=== PATIENT | male | born 1955 | race Caucasian/White ===

== ENCOUNTER → 2024-11-27 | Outpatient (CLI) | payer MEDICAID, MEDICARE ==
[~2024-11-27] MED LIST: ALPR0.25; ATOR1TAB21; ERGO500029; HYDR-3490; LISI20TA33; ONDA-84 PO; PROC10TA5 PO
== END ==
LOC: M ONCM 09:00
PROVIDERS: ATTEND Dietitian, Registered
DX: Z71.3 Dietary counseling and surveillance (principal); C01 Malignant neoplasm of base of tongue

== ENCOUNTER → 2024-12-04 | Outpatient (CLI) | payer MEDICARE | LOC: M ONCM 07:05 | PROVIDERS: ATTEND Dietitian, Registered | DX: C01 Malignant neoplasm of base of tongue (principal); Z71.3 Dietary counseling and surveillance; Z68.28 Body mass index [BMI] 28.0-28.9, adult ==

== ENCOUNTER → 2024-12-04 | Outpatient (CLI) | payer MEDICARE ==
[~2024-12-04] MED LIST changes: +LIDO100S29 SSP; +LIDO30CR18 TOP; +MAGICMW SSP; +MIDAZOLAM INJ 2 MG/2 ML VIAL IV PRN; +NS (Normal Saline) 0.9% 1,000 ML IV SCH; +POTA20LI16 PO; +ceFAZolin SODIUM 2 GM in DEXTROSE 5% (D5W) ADV/MINI-BAG 50 ML IV ONE
[2024-12-04 07:12] VITALS: TEMP 97.3
[2024-12-04] MEDS: CEPHALEXIN 500 MG CAP PO ONE (08:08)
[2024-12-04] MEDS: LIDOCAINE 1% MDV 20 ML VIAL SC SCH (08:38)
[2024-12-04 08:45] VITALS: BP 183/97; O2SAT 100
== END ==
LOC: M IRPRO 06:43
PROVIDERS: ATTEND Specialist
DX: C02.9 Malignant neoplasm of tongue, unspecified (principal)
CPT/HCPCS: 36561; J1642

== ENCOUNTER → 2024-12-20 | Outpatient (RCR) | payer MEDICARE ==
[~2024-12-20] MED LIST changes: -MIDAZOLAM INJ 2 MG/2 ML VIAL IV PRN; -NS (Normal Saline) 0.9% 1,000 ML IV SCH; -ceFAZolin SODIUM 2 GM in DEXTROSE 5% (D5W) ADV/MINI-BAG 50 ML IV ONE
== END ==
LOC: M ONCR 11-20 09:18
PROVIDERS: ATTEND General Practice
DX: Z51.0 Encounter for antineoplastic radiation therapy (principal); C01 Malignant neoplasm of base of tongue

== ENCOUNTER 2025-01-15 08:01 | Outpatient (RCR) | payer MEDICARE | END 2025-01-20 | LOC: M ONCR 08:01 | PROVIDERS: ATTEND General Practice | DX: Z51.0 Encounter for antineoplastic radiation therapy (principal); C01 Malignant neoplasm of base of tongue ==